=== PATIENT | female | born 1935 | race Caucasian/White ===

== ENCOUNTER 2022-07-24 18:04 | Emergency (ER) | payer OTHER ==
[~2022-07-24] VITALS: Ht 157.5 cm; Wt 86.2 kg
[2022-07-24 18:40] VITALS: BP 117/80
--- NOTE | 2022-07-24 18:46 | NUR ---
Patient ambulated to bed 6.
[2022-07-24] MEDS ORDERED: KETOROLAC 60 MG/2 ML VIAL IM ONE (18:55)
--- NOTE | 2022-07-24 19:19 | NUR ---
Report given to ADELA Celaya for transfer of care.
--- NOTE | 2022-07-24 19:34 | NUR ---
Dr. Crowell examining patient.
--- NOTE | 2022-07-24 19:40 | NUR ---
DR VERA AT BEDSIDE
--- NOTE | 2022-07-24 20:26 | NUR ---
86YR OLD FEMALE C/O R EAR / R SIDED HEAD PAIN . RADIATES TO R SHOULDER . PAIN IS SHARP /. PAIN STARTED TODAY. NO KNOWN INJURY PER PT. PT IS A&OX4 RESP EVEN AND UNLABORED. SKIN IS WARM AND DRY. PT IS RESTING WITH HOB ELEVATED. BED AT LOWEST POSITION WITH SIDE RAILS UP X2 SULFA COLOSTOMY
[2022-07-24] MEDS ORDERED: IBUP-2213 PO (20:59)
--- NOTE | 2022-07-24 21:08 | NUR ---
PT IS ASLEEP WITH HOB ELEVATED. RESP EVEN AND UNLABORED. PENDING DISPO
[2022-07-24 21:42] VITALS: BP 119/80
--- NOTE | 2022-07-24 21:42 | NUR ---
Patient's called her family for a ride.
--- NOTE | 2022-07-24 21:42 | NUR ---
Chart checked and completed.
--- NOTE | 2022-07-24 21:42 | NUR ---
Patient discharged with v/s stable. Written and verbal after care instructions given and explained. Patient alert, oriented and verbalized understanding of instructions. Ambulatory with to car with patient's walker. All questions addressed prior to discharge. ID band removed. Patient advised to follow up with PMD. Rx of Motrin given. Patient educated on indication of medication including possible reaction and side effects. Opportunity to ask questions provided and answered.
== END 2022-07-24 21:42 | disposition home or self-care (01) ==
LOC: MED 18:04
DX: R51.9 Headache, unspecified (principal); H92.01 Otalgia, right ear; E11.9 Type 2 diabetes mellitus without complications; Z90.49 Acquired absence of other specified parts of digestive tract; Z88.1 Allergy status to other antibiotic agents; Z79.899 Other long term (current) drug therapy; Z90.710 Acquired absence of both cervix and uterus; Z98.890 Other specified postprocedural states
CPT/HCPCS: 70450; 96372; 99284; J1885

== ENCOUNTER 2022-12-14 16:40 | Emergency (ER) | payer OTHER ==
[~2022-12-14] VITALS: Ht 157.5 cm; Wt 90.7 kg
[~2022-12-14 16:40] MED LIST: IBUP-2213 PO
[2022-12-14 17:04] VITALS: BP 104/61
--- NOTE | 2022-12-14 17:07 | NUR ---
PT WHEELCHAIR ASSISTED WITH OWN WHEELCHAIR TO BED 09
--- NOTE | 2022-12-14 19:30 | NUR ---
RECEIVED IN BED 9 WITH COMPLAINTS OF RLE PAIN. PATIENT HAS BEEN INCONTINENT OF URINE. LINENS CHANGED. DIONI CARE GIVEN. PURE WICK PLACED. PATIENT MADE COMFORTABLE.
--- NOTE | 2022-12-14 20:02 | NUR ---
DAUGHTER TOMMY CALLED REQUESTING UPDATE [phone]
--- NOTE | 2022-12-14 20:33 | NUR ---
[facility] CALLED REQUESTING UPDATE [phone]
[2022-12-14] MEDS ORDERED: ACET-10509 PO (21:23)
[2022-12-14] MEDS ORDERED: ACETAMINOPHEN EXTRA STRENGTH 500 MG TAB PO ONE (21:25)
--- NOTE | 2022-12-14 22:00 | NUR ---
CALLED PLACED TO PATIENT'S GRANDDAUGHTER REGARDING PATIENT'S DISCHARGE. SAHARA WILL BE HERE TO PICKUP PATIENT.
--- NOTE | 2022-12-14 22:30 | NUR ---
Patient discharged with v/s stable. Written and verbal after care instructions given and explained. Patient alert, oriented and verbalized understanding of instructions. Wheel Chair Assisted with by caregiver. All questions addressed prior to discharge. ID band removed. Patient advised to follow up with PMD. Rx of TYLENOL & LIDOCAINE PATCH given. Patient educated on indication of medication including possible reaction and side effects. Opportunity to ask questions provided and answered.
== END 2022-12-14 22:30 | disposition home or self-care (01) ==
LOC: MED 16:40
DX: M79.651 Pain in right thigh (principal); R22.41 Localized swelling, mass and lump, right lower limb; M25.561 Pain in right knee; J45.909 Unspecified asthma, uncomplicated; E11.9 Type 2 diabetes mellitus without complications; Z86.718 Personal history of other venous thrombosis and embolism; Z98.890 Other specified postprocedural states; Z79.1 Long term (current) use of non-steroidal anti-inflammatories (NSAID); Z88.2 Allergy status to sulfonamides; Z88.1 Allergy status to other antibiotic agents
CPT/HCPCS: 93970; 99284; Q0092

== ENCOUNTER 2023-05-13 21:17 | Inpatient (IN) | payer OTHER ==
[~2023-05-13] VITALS: Ht 154.9 cm; Wt 90.7 kg
[~2023-05-13 21:17] MED LIST changes: +ACET-10509 PO
[2023-05-13 21:21] VITALS: BP 124/61; PULSE 108; RESP 17; TEMP 97.6; O2SAT 98
[2023-05-13 21:42] VITALS: O2SAT 98
[2023-05-13] MEDS ORDERED: MORPHINE SULFATE 4 MG/ML SYR IVP ONE (22:30)
[2023-05-13] MEDS ORDERED: ONDANSETRON 4 MG/2 ML VIAL IVP ONE (22:30)
[2023-05-14] VITALS (7 sets, daily range): BP systolic 131–149; BP diastolic 69–95; PULSE 59–97; RESP 16–20; TEMP 97.6–98; O2SAT 94–98
[2023-05-14 00:10] LABS: APPEARANCE,URINE HAZY (CLEAR); BILIRUBIN,URINE NEGATIVE (NEGATIVE); BLOOD, URINE 1+ (NEGATIVE); COLOR,URINE YELLOW (YELLOW); LEUKOCYTE ESTERASE ,URINE 3+ (NEGATIVE); NITRITE, URINE NEGATIVE (NEGATIVE); PROTEIN,URINE NEGATIVE (NEGATIVE); UGLUCOSE NEGATIVE (NEGATIVE); UROBILINOGEN,URINE 0.2 EU/dL (0.2 - 1)
[2023-05-14 00:20] LABS: BACTERIA,URINE 1+ /HPF (None Seen); RBC,URINE 0-5 /HPF (0-5); SQUAMOUS EPITHELIAL CELL,UR 4-10 (MOD) /LPF (0-3 (FEW)); WBC,URINE TOO MANY TO COUNT /HPF (0-5)
[2023-05-14 00:35] LABS: BASOPHILS # (AUTO) 0.1 K/uL (0.00-0.22); BASOPHILS % (AUTO) 0.7 % (0.0-2.0); EOSINOPHILS # (AUTO) 0.1 K/uL (0-0.4); EOSINOPHILS % (AUTO) 1.1 % (0.0-4.0); HEMATOCRIT 37.1 % (36-48); HEMOGLOBIN 12.2 g/dL (12.0-16.0); LYMPHOCYTES # (AUTO) 1.4 K/uL (2.5-16.5); LYMPHOCYTES % (AUTO) 15.8 % (20.5-51.1); MEAN CORPUSCULAR HEMOGLOBIN 32 pg (27-31); MEAN CORPUSCULAR HGB CONC 33 g/dL (33-37); MONOCYTES # (AUTO) 0.8 K/uL (0.8-1.0); MONOCYTES % (AUTO) 9.1 % (1.7-9.3); NEUTROPHILS # (AUTO) 6.7 K/uL (1.8-7.7); NEUTROPHILS % (AUTO) 73.3 % (42.2-75.2); PLATELET COUNT (AUTO) 167 K/uL (140-450); RED BLOOD CELL COUNT(AUTO) 3.86 MIL/uL (4.20-5.40); RED CELL DISTRIBUTION WIDTH 13.5 % (11.6-13.7); WHITE BLOOD COUNT (AUTO) 9.2 K/uL (4.8-10.8)
[2023-05-14 00:54] LABS: ALANINE AMINOTRANSFERASE 9 U/L (12-78); ALBUMIN 2.8 g/dL (3.4-5.0); ALKALINE PHOSPHATASE 113 U/L (50-136); ANION GAP 8.7 (8-16); ASPARTATE AMINOTRANSFERASE 11 U/L (15-37); CALCIUM 8.3 mg/dL (8.5-10.1); CARBON DIOXIDE 29.5 mmol/L (21-32); CHLORIDE 105 mmol/L (98-107); CREATININE 0.8 mg/dL (0.6-1.3); GLUCOSE 173 mg/dL (74-106); LIPASE 29 U/L (16-77); POTASSIUM 4.2 mmol/L (3.5-5.1); SODIUM SERUM 139 mmol/L (136-145); TOTAL BILIRUBIN 0.7 mg/dL (0.0-1.0); TOTAL PROTEIN, SERUM 6.1 g/dL (6.4-8.2); UREA NITROGEN, BLOOD 15 mg/dL (7-18)
[2023-05-14] MEDS ORDERED: LEVOFLOXACIN 750 MG/D5W PREMIX 150 ML IV ONE (01:45)
[2023-05-14 02:48] LABS: LACTIC ACID 1.7 mmol/L (0.4-2.0)
[2023-05-14] MEDS ORDERED: LEVOFLOXACIN 500 MG/D5W PREMIX 100 ML IV SCH (04:40)
[2023-05-14] MEDS ORDERED: LORazepam 1 MG TAB PO PRN (04:40)
[2023-05-14] MEDS ORDERED: ACETAMINOPHEN 325 MG TAB PO PRN (04:40)
[2023-05-14] MEDS ORDERED: ONDANSETRON 4 MG/2 ML VIAL IVP PRN (04:40)
[2023-05-14] MEDS ORDERED: ZOLPIDEM 5 MG TAB PO PRN (04:40)
[2023-05-14] MEDS ORDERED: MAG SULF 2000 MG/WATER PREMIX 50 ML IV PRN (04:40)
[2023-05-14] MEDS ORDERED: POTASSIUM CHLORIDE 10 MEQ TABER PO PRN (04:40)
[2023-05-14] MEDS ORDERED: KCL 20 MEQ IN 100 mL PREMIX 200 ML IV PRN (04:40)
[2023-05-14] MEDS ORDERED: FLUT1DSK2 IH (05:22)
[2023-05-14] MEDS ORDERED: ACET-8905 PO (05:22)
[2023-05-14] MEDS ORDERED: FURO-572 PO (05:22)
[2023-05-14] MEDS ORDERED: METF-346 PO (05:22)
[2023-05-14] MEDS ORDERED: POTA8CER PO (05:22)
[2023-05-14] MEDS ORDERED: SERT25TA PO (05:22)
[2023-05-14] MEDS ORDERED: MELO-176 PO (05:22)
[2023-05-14] MEDS ORDERED: TRAM50TA3 PO (05:22)
[2023-05-14] MEDS ORDERED: GABA100C PO (05:22)
[2023-05-14] MEDS: MORPHINE SULFATE 4 MG/ML SYR IVP PRN ×2 (06:20→14:39)
[2023-05-14] MEDS: NACL 0.9% 1,000 ML IV SCH ×2 (09:24→17:10)
[2023-05-14] MEDS: ENOXAPARIN 40 MG/0.4 ML SYR SUBQ SCH (09:24)
[2023-05-14] MEDS ORDERED: DEXTROSE 50% 50 ML SYR IVP PRN (09:30)
[2023-05-14] MEDS: BLOOD GLUCOSE MONITORING 1 DEV DEV FS SCH ×3 (11:38→20:42)
[2023-05-14] MEDS: INSULIN LISPRO SLIDING SCALE 100 UNITS/ML VIAL SUBQ PRN ×2 (11:38→20:45)
[2023-05-14] MEDS: HYDROcodone/APAP 5/325 MG 1 TAB TAB PO PRN (16:29)
[2023-05-15] VITALS: BP 108/56; PULSE 97; RESP 17; TEMP 97.4; O2SAT 97
[2023-05-15] MEDS: LEVOFLOXACIN 500 MG/D5W PREMIX 100 ML IV SCH (02:00)
[2023-05-15] MEDS: NACL 0.9% 1,000 ML IV SCH ×2 (04:44→18:10)
[2023-05-15 05:20] LABS: BASOPHILS % (AUTO) 0.6 % (0.0-2.0); EOSINOPHILS # (AUTO) 0.1 K/uL (0-0.4); EOSINOPHILS % (AUTO) 1.1 % (0.0-4.0); HEMATOCRIT 39.6 % (36-48); HEMOGLOBIN 13.1 g/dL (12.0-16.0); LYMPHOCYTES % (AUTO) 14.5 % (20.5-51.1); MEAN CORPUSCULAR HEMOGLOBIN 32 pg (27-31); MEAN CORPUSCULAR HGB CONC 33 g/dL (33-37); MONOCYTES # (AUTO) 0.7 K/uL (0.8-1.0); MONOCYTES % (AUTO) 9.6 % (1.7-9.3); NEUTROPHILS # (AUTO) 5.3 K/uL (1.8-7.7); NEUTROPHILS % (AUTO) 74.2 % (42.2-75.2); PLATELET COUNT (AUTO) 160 K/uL (140-450); RED BLOOD CELL COUNT(AUTO) 4.12 MIL/uL (4.20-5.40); RED CELL DISTRIBUTION WIDTH 13.6 % (11.6-13.7); WHITE BLOOD COUNT (AUTO) 7.1 K/uL (4.8-10.8)
[2023-05-15 05:29] LABS: ANION GAP 9.8 (8-16); CALCIUM 8.3 mg/dL (8.5-10.1); CARBON DIOXIDE 30.9 mmol/L (21-32); CHLORIDE 103 mmol/L (98-107); CREATININE 0.6 mg/dL (0.6-1.3); GLUCOSE 144 mg/dL (74-106); POTASSIUM 4.7 mmol/L (3.5-5.1); SODIUM SERUM 139 mmol/L (136-145); UREA NITROGEN, BLOOD 11 mg/dL (7-18)
[2023-05-15] MEDS: BLOOD GLUCOSE MONITORING 1 DEV DEV FS SCH ×4 (06:55→21:26)
[2023-05-15 08:00] VITALS: BP 99/63; PULSE 92; RESP 18; TEMP 97.6; O2SAT 97
[2023-05-15] MEDS: ENOXAPARIN 40 MG/0.4 ML SYR SUBQ SCH (09:13)
[2023-05-15] MEDS: MORPHINE SULFATE 4 MG/ML SYR IVP PRN ×2 (09:27→18:19)
[2023-05-15 16:00] VITALS: BP 101/57; PULSE 94; RESP 18; TEMP 97.8; O2SAT 97
[2023-05-15 20:00] VITALS: PULSE 78; RESP 20; O2SAT 97
[2023-05-16] MEDS: NACL 0.9% 1,000 ML IV SCH (00:45)
[2023-05-16 00:48] VITALS: BP 137/78; PULSE 78; RESP 20; TEMP 98.2; O2SAT 97
[2023-05-16] MEDS: MORPHINE SULFATE 4 MG/ML SYR IVP PRN ×3 (00:52→21:17)
[2023-05-16] MEDS: LEVOFLOXACIN 500 MG/D5W PREMIX 100 ML IV SCH (02:00)
[2023-05-16 05:29] LABS: BASOPHILS # (AUTO) 0.2 K/uL (0.00-0.22); BASOPHILS % (AUTO) 2.8 % (0.0-2.0); EOSINOPHILS # (AUTO) 0.1 K/uL (0-0.4); EOSINOPHILS % (AUTO) 1.3 % (0.0-4.0); HEMATOCRIT 38.8 % (36-48); HEMOGLOBIN 12.8 g/dL (12.0-16.0); LYMPHOCYTES # (AUTO) 1.6 K/uL (2.5-16.5); LYMPHOCYTES % (AUTO) 20.2 % (20.5-51.1); MEAN CORPUSCULAR HEMOGLOBIN 32 pg (27-31); MEAN CORPUSCULAR HGB CONC 33 g/dL (33-37); MEAN CORPUSCULAR VOLUME 95.7 fL (80-94); MONOCYTES # (AUTO) 0.9 K/uL (0.8-1.0); MONOCYTES % (AUTO) 10.5 % (1.7-9.3); NEUTROPHILS # (AUTO) 5.3 K/uL (1.8-7.7); NEUTROPHILS % (AUTO) 65.2 % (42.2-75.2); PLATELET COUNT (AUTO) 127 K/uL (140-450); RED BLOOD CELL COUNT(AUTO) 4.05 MIL/uL (4.20-5.40); RED CELL DISTRIBUTION WIDTH 13.7 % (11.6-13.7); WHITE BLOOD COUNT (AUTO) 8.2 K/uL (4.8-10.8)
[2023-05-16 05:40] LABS: CALCIUM 8.6 mg/dL (8.5-10.1); CARBON DIOXIDE 33.6 mmol/L (21-32); CHLORIDE 103 mmol/L (98-107); CREATININE 0.7 mg/dL (0.6-1.3); GLUCOSE 126 mg/dL (74-106); POTASSIUM 4.6 mmol/L (3.5-5.1); SODIUM SERUM 139 mmol/L (136-145); UREA NITROGEN, BLOOD 8 mg/dL (7-18)
[2023-05-16] MEDS: BLOOD GLUCOSE MONITORING 1 DEV DEV FS SCH ×4 (06:59→21:30)
[2023-05-16 08:00] VITALS: BP 117/76; PULSE 99; RESP 18; RESP 20; TEMP 97.6; O2SAT 96
[2023-05-16] MEDS: ENOXAPARIN 40 MG/0.4 ML SYR SUBQ SCH (08:47)
[2023-05-16] MEDS ORDERED: CIPR500T4 PO (14:29)
[2023-05-16 14:37] VITALS: BP 117/76; PULSE 99; RESP 18; TEMP 97.6
[2023-05-16 16:00] VITALS: BP 125/60; PULSE 96; RESP 16; TEMP 98.2; O2SAT 96
[2023-05-16 20:00] VITALS: BP 116/51; PULSE 94; RESP 16; TEMP 98.3; O2SAT 96
[2023-05-17] MEDS: NACL 0.9% 1,000 ML IV SCH (01:03)
[2023-05-17] MEDS: LEVOFLOXACIN 500 MG/D5W PREMIX 100 ML IV SCH (02:59)
[2023-05-17] MEDS: MORPHINE SULFATE 4 MG/ML SYR IVP PRN (03:16)
[2023-05-17 05:38] LABS: BASOPHILS % (AUTO) 0.5 % (0.0-2.0); EOSINOPHILS # (AUTO) 0.1 K/uL (0-0.4); HEMATOCRIT 40.5 % (36-48); HEMOGLOBIN 13.3 g/dL (12.0-16.0); LYMPHOCYTES # (AUTO) 1.1 K/uL (2.5-16.5); LYMPHOCYTES % (AUTO) 13.5 % (20.5-51.1); MEAN CORPUSCULAR HEMOGLOBIN 32 pg (27-31); MEAN CORPUSCULAR HGB CONC 33 g/dL (33-37); MEAN CORPUSCULAR VOLUME 96.2 fL (80-94); MONOCYTES # (AUTO) 0.9 K/uL (0.8-1.0); MONOCYTES % (AUTO) 11.1 % (1.7-9.3); NEUTROPHILS % (AUTO) 73.9 % (42.2-75.2); PLATELET COUNT (AUTO) 132 K/uL (140-450); RED BLOOD CELL COUNT(AUTO) 4.21 MIL/uL (4.20-5.40); RED CELL DISTRIBUTION WIDTH 13.7 % (11.6-13.7); WHITE BLOOD COUNT (AUTO) 8.1 K/uL (4.8-10.8)
[2023-05-17 05:59] LABS: ANION GAP 7.8 (8-16); CALCIUM 8.5 mg/dL (8.5-10.1); CARBON DIOXIDE 32.6 mmol/L (21-32); CHLORIDE 102 mmol/L (98-107); CREATININE 0.7 mg/dL (0.6-1.3); GLUCOSE 139 mg/dL (74-106); POTASSIUM 4.4 mmol/L (3.5-5.1); SODIUM SERUM 138 mmol/L (136-145); UREA NITROGEN, BLOOD 8 mg/dL (7-18)
[2023-05-17] MEDS: BLOOD GLUCOSE MONITORING 1 DEV DEV FS SCH ×2 (06:31→11:53)
[2023-05-17] MEDS: ENOXAPARIN 40 MG/0.4 ML SYR SUBQ SCH (08:43)
[2023-05-17 10:35] VITALS: BP 108/55; PULSE 115; RESP 18; TEMP 97.7; O2SAT 96
[2023-05-17 14:37] VITALS: BP 108/55; PULSE 115; RESP 18; TEMP 97.7
[2023-05-17 16:00] VITALS: BP 104/55; PULSE 112; RESP 18; TEMP 98.4; O2SAT 94
[2023-05-17] MEDS: HYDROcodone/APAP 5/325 MG 1 TAB TAB PO PRN (17:03)
== END 2023-05-17 17:05 | DRG 690 ==
LOC: MED 21:17 → MTU 05-14 04:39 → OBSVTOIN 05-15 04:39
PROVIDERS: ADMIT Hospitalist; ATTEND Hospitalist
DX: N39.0 Urinary tract infection, site not specified (principal); E44.0 Moderate protein-calorie malnutrition; E11.9 Type 2 diabetes mellitus without complications; I10 Essential (primary) hypertension; Z88.1 Allergy status to other antibiotic agents; Z88.2 Allergy status to sulfonamides; Z88.8 Allergy status to other drugs, medicaments and biological substances; Z79.899 Other long term (current) drug therapy; E83.42 Hypomagnesemia; Z68.37 Body mass index [BMI] 37.0-37.9, adult
CPT/HCPCS: 96365; 96375; 99285; G0378; 36415; 71045; 80048; 80053; 81001; 82948; 83605; 83690; 83735; 84484; 85025; 87040; 87081; 87086; 93005; 97110; 97112; J1650; J1815; J1956; J2270; J2405; J3475; Q0092